=== PATIENT | female | born 2005 ===

== ENCOUNTER 2025-04-08 11:22 | Emergency (ER) | payer SELFPAY ==
[~2025-04-08] VITALS: Ht 157.5 cm; Wt 49.7 kg
[2025-04-08 13:28] VITALS: BP 108/65; TEMP 98.2; O2SAT 100
== END 2025-04-08 15:16 | disposition left against medical advice (07) ==
LOC: M ED 11:22
DX: Z53.21 Procedure and treatment not carried out due to patient leaving prior to being seen by health care provider (principal)